=== PATIENT | female | born 1955 | race Caucasian/White ===

== ENCOUNTER → 2018-04-01 | Outpatient (CLI) | payer OTHER ==
[~2018-04-01] MED LIST: COREG12.5 MG PO; LASIX40 MG PO; LISINOPRIL10 MG PO; MEDROL DOSE PACK; SPIRONOLACTONE25 MG PO; VESICARE5 MG PO
--- NOTE | 2018-04-01 17:20 | Diagnostic Imaging Report ---
EXAMINATION: Head CT HISTORY: Left-sided facial droop. COMPARISON: None. TECHNIQUE: Multidetector axial images were obtained without contrast from the foramen magnum to the vertex . The images were reconstructed using brain and bone algorithms. Thin section brain images were reformatted into coronal and sagittal planes. Intravenous contrast: None. Image quality: Motion/streaking artifact limits the evaluation of the skull base and posterior cranial fossa. Dose modulation, iterative reconstruction, and/or weight based adjustment of the mA/kV was utilized to reduce the radiation dose to as low as reasonably achievable. FINDINGS: Parenchyma: 1. No abnormal densities. 2. No mass or hemorrhage. No CT evidence of acute territorial vascular insult. Extra-axial spaces:No abnormal density. No extra-axial fluid collections Brain volume: Normal for age. Ventricles: No hydrocephalus or displacement. Arteries: No density suggestive of thrombus. Dural sinuses: No abnormal density. Extra-axial spaces: No abnormal density. Foramen magnum: No mass, Chiari malformation, or basilar invagination. Sella: No obvious mass. Paranasal/mastoid sinuses: Imaged portions unremarkable. Skull/Scalp: No lytic or blastic lesions. No fractures. IMPRESSION: No acute intracranial hemorrhage or cortical infarct. The findings were discussed with the requesting ALTHEA Ocasio at the time of this dictation. Signed by: Dr. Katty Godoy M.D. on 04/01/2018 5:16 PM
== END ==
LOC: CT 16:32
PROVIDERS: ATTEND Family Medicine
DX: R29.810 Facial weakness (principal)
CPT/HCPCS: 70450

== ENCOUNTER → 2020-03-24 | Day surgery (SDC) | payer BC, OTHER ==
[2020-03-21 11:37] LABS: BASOPHILS # (AUTO) 0.1 (0.0-0.1); BASOPHILS % 0.7 % (0.0-1.0); EOSINOPHILS # (AUTO) 0.1 (0.0-0.4); EOSINOPHILS % 1.6 % (0.0-6.0); HEMATOCRIT 43.9 % (34.2-44.1); HEMOGLOBIN 14.3 g/dL (12.0-16.0); LYMPHOCYTES # (AUTO) 2.6 (1.0-3.2); LYMPHOCYTES % 31.6 % (18.0-39.1); MEAN CORPUSCULAR HEMOGLOBIN 29.3 pg (28-32); MEAN CORPUSCULAR HGB CONC 32.6 g/dL (31-35); MONOCYTES # (AUTO) 0.8 (0.2-0.8); NEUTROPHILS # (AUTO) 4.7 (2.1-6.9); NEUTROPHILS % 56.7 % (38.7-80.0); PLATELET COUNT 309 x10e3/uL (140-360); RED BLOOD COUNT 4.88 x10e6/uL (3.6-5.1); RED CELL DISTRIBUTION WIDTH 12.1 % (11.7-14.4)
[~2020-03-24] MED LIST changes: +CLINDAMYCIN 600MG / 50ML 50 ML IV ONE; +FENTANYL CITRATE/PF 100MCG/2 ML INJ ONE; +GABAPENTIN100 MG PO; +GLUCAGON FOR INJ 1 MG VIAL ONE; +HYDROCODON-ACE1 EA11 PO; +HYOSCYAMINE 0.125 MG TAB ONE; +LIDOCAINE HCL 2% LOCAL INJ 5 ML SDV VIAL INJ ONE; +MIDAZOLAM HCL 2 MG/2 ML VIAL ONE; +PROPOFOL IV EMULSION 10 MG/ML 20 ML VIAL ONE
[2020-03-24 10:46] VITALS: BP 107/59
--- NOTE | 2020-03-24 14:43 | Operative Report ---
DATE OF PROCEDURE: 03/24/2020 SURGEON: Bayron Ruggiero MD PROCEDURES: EGD with biopsies and colonoscopy with polypectomy. INDICATIONS FOR EGD: Acid reflux, bloating. INDICATIONS FOR COLONOSCOPY: Colorectal cancer screening. MEDICATIONS: The patient was done under MAC, please see anesthesiologist's note. PROCEDURE IN DETAIL: With the patient in the left lateral decubitus position, a flexible fiberoptic Olympus gastroscope was introduced into the esophagus under direct visualization without any difficulty. The esophagus appeared to be within normal limits. The scope was then advanced with ease into the stomach. Mucosa overlying the antrum and the body revealed some patchy erythema and [id number] edema, and biopsies were obtained and sent to stain for H. pylori. Pylorus was of normal contour and shape, was intubated with ease and the scope was advanced all the way to the second portion of the duodenum. Biopsies were obtained from the proximal second portion and the duodenal bulb to rule out sprue. The scope was then withdrawn back into the stomach and retroflexed, and mucosa overlying the fundus and the cardia appeared to be within normal limits. The scope was then straightened out, it was subsequently withdrawn, and the patient tolerated the procedure well. IMPRESSION: 1. Normal esophagus. 2. Gastritis, biopsied, biopsies sent to stain for Helicobacter pylori. 3. Rule out sprue. PLAN: Follow up histology. Initiate Protonix 40 mg one p.o. q.a.m. before meals. The patient was then turned around and after adequate lubrication of the anal canal, the flexible fiberoptic Olympus colonoscope was inserted into the rectum with ease and advanced all the way to the cecum. It was then withdrawn slowly. Mucosa overlying the cecum, ascending colon, transverse colon, and descending colon appeared to be within limits. Some diverticular disease was noted in the sigmoid colon. One polyp was hot snared and site was hemoclipped x1 and one polyp was hot biopsied in the sigmoid colon. One polyp was hot snared in the rectum. The scope was then retroflexed into the distal rectum and small internal hemorrhoids were noted, none of which was actively bleeding. The scope was then straightened out, it was subsequently withdrawn, and the patient tolerated procedure well. IMPRESSION: 1. Diverticulosis. 2. Sigmoid colon polyps x2, one hot snared and hemoclipped and one hot biopsied. 3. Rectal polyp, hot snared. 4. Internal hemorrhoids, none actively bleeding. PLAN: Follow up histology. Initiate high-fiber, low-fat diet. Initiate high-fiber supplement. The patient might benefit from a followup colonoscopy in 3 years. Bayron Ruggiero MD [facility] [place] /[id number] cc: Garry Slaughter DO
== END | disposition home or self-care (01) ==
LOC: OR 06:37
PROVIDERS: ATTEND Internal Medicine Gastroenterology
DX: Z12.11 Encounter for screening for malignant neoplasm of colon (principal); D12.5 Benign neoplasm of sigmoid colon; K62.1 Rectal polyp; K29.70 Gastritis, unspecified, without bleeding; K21.9 Gastro-esophageal reflux disease without esophagitis; K57.30 Diverticulosis of large intestine without perforation or abscess without bleeding; K62.5 Hemorrhage of anus and rectum; K64.8 Other hemorrhoids; M50.30 Other cervical disc degeneration, unspecified cervical region; R53.1 Weakness; R20.0 Anesthesia of skin; I50.9 Heart failure, unspecified; I35.1 Nonrheumatic aortic (valve) insufficiency; Z01.812 Encounter for preprocedural laboratory examination; Z88.1 Allergy status to other antibiotic agents; Z68.28 Body mass index [BMI] 28.0-28.9, adult; Z85.3 Personal history of malignant neoplasm of breast; Z95.810 Presence of automatic (implantable) cardiac defibrillator; Z80.0 Family history of malignant neoplasm of digestive organs
CPT/HCPCS: 36415; 43239; 45384; 45385; 85025; J1610; J2001; J2250; J2704; J3010; 45378

== ENCOUNTER → 2021-11-22 | Outpatient (CLI) | payer BC ==
[~2021-11-22] MED LIST changes: -CLINDAMYCIN 600MG / 50ML 50 ML IV ONE; -FENTANYL CITRATE/PF 100MCG/2 ML INJ ONE; -GLUCAGON FOR INJ 1 MG VIAL ONE; -HYOSCYAMINE 0.125 MG TAB ONE; -LIDOCAINE HCL 2% LOCAL INJ 5 ML SDV VIAL INJ ONE; -MIDAZOLAM HCL 2 MG/2 ML VIAL ONE; -PROPOFOL IV EMULSION 10 MG/ML 20 ML VIAL ONE
== END ==
LOC: MAMMO 13:12
PROVIDERS: ATTEND Family Medicine
DX: Z85.3 Personal history of malignant neoplasm of breast (principal)
CPT/HCPCS: 77066

== ENCOUNTER 2025-03-24 11:01 | Emergency (ER) | payer BC ==
[~2025-03-24] VITALS: Ht 157.5 cm; Wt 45.4 kg
[2025-03-24 11:38] VITALS: PULSE 70; RESP 16; TEMP 98.9
[2025-03-24] MEDS: MECLIZINE HCL 12.5 MG TAB PO ONE (11:52)
[2025-03-24] MEDS ORDERED: MECLIZINE HCL25 MG PO (13:08)
[2025-03-24 13:27] VITALS: BP 105/76; PULSE 68; RESP 18; O2SAT 100
== END 2025-03-24 13:24 | disposition home or self-care (01) ==
LOC: ER 11:18
DX: R42 Dizziness and giddiness (principal); H92.01 Otalgia, right ear; I10 Essential (primary) hypertension; F03.90 Unspecified dementia, unspecified severity, without behavioral disturbance, psychotic disturbance, mood disturbance, and anxiety
CPT/HCPCS: 99283; J8597